=== PATIENT | female | born 1970 | race Caucasian/White ===

== ENCOUNTER 2018-09-22 11:01 | Emergency (ER) | payer OTHER ==
[~2018-09-22] VITALS: Wt 120.0 kg
[~2018-09-22 11:01] MED LIST: ACAR25TA8 PO; ACET325T33 PO; BENA5TAB33 PO; MECL25TA2 PO; NAPR-985 PO
[2018-09-22] MEDS ORDERED: ONDANSETRON (ODT) 4 MG TAB ODT STA (11:50)
[2018-09-22] MEDS ORDERED: ONDA4TAB14 PO (13:30)
[2018-09-22] MEDS ORDERED: ACET500C5 PO (13:30)
[2018-09-22 14:00] VITALS: BP 142/71; PULSE 81; RESP 18
--- NOTE | 2018-09-22 14:20 | ERD ---
ER Documentation Chief Complaint Chief Complaint VOMITED X 4 TODAY, HAS CUP OF WATER IN HER HAND HPI 48-year-old female presenting with vomiting x4 times today. She states she has some epigastric pain with some mild chest pain or shortness of breath. Denies any changes in urination or bowel movement. Denies any fevers. Medical history is diabetes. NKDA. Surgical history appendectomy and . Social history denies ROS All systems reviewed and are negative except as per history of present illness. Medications Home Meds Active Scripts Ondansetron (Ondansetron Odt) 4 Mg Tab.rapdis, 4 MG PO Q6H PRN for NAUSEA AND/OR VOMITING, #10 TAB Prov:CHAVA HUSAIN PA-C 09/22/18 Acetaminophen* (Tylophen*) 500 Mg Capsule, 2 CAP PO Q8H PRN for PAIN AND OR ELEVATED TEMP, #20 CAP Prov:CHAVA HUSAIN PA-C 09/22/18 Naproxen* (Naprosyn*) 500 Mg Tablet, 500 MG PO BID PRN for PAIN AND/OR INFLAMMATION, #30 TAB Prov:CINDY CORONADO PA-C 04/17/16 Acetaminophen* (Tylenol*) 325 Mg Tablet, 2 TAB PO Q6 PRN for PAIN AND OR ELEVATED TEMP, #20 TAB Prov:CHAVA HUSAIN PA-C 03/17/16 Meclizine Hcl* (Antivert*) 25 Mg Tablet, 25 MG PO Q6H PRN for dizziness, #20 TAB Prov:ALMA BURK MD 10/26/15 Reported Medications Benazepril Hcl* (Benazepril Hcl*) 5 Mg Tablet, 5 MG PO DAILY, TAB 03/20/14 Acarbose* (Precose*) 25 Mg Tablet, 25 MG PO TID, TAB 03/20/14 Allergies Allergies: Coded Allergies: No Known Allergy (Unverified , 03/17/16) PMhx/Soc History of Surgery: Yes (appendectomy, tonsillectomy, ) Anesthesia Reaction: No Hx Neurological Disorder: No Hx Respiratory Disorders: No Hx Cardiac Disorders: Yes (HTN, DM) Hx Psychiatric Problems: No Hx Miscellaneous Medical Probl: No Hx Alcohol Use: No Hx Substance Use: No Hx Tobacco Use: No Smoking Status: Never smoker FmHx Family History: No diabetes, No coronary disease, No other Physical Exam Vitals Vital Signs Date Temp Pulse Resp B/P (MAP) Pulse Ox O2 O2 Flow FiO2 Time Delivery Rate 09/22/18 98.3 81 18 142/71 99 Room Air 14:00 (94) 09/22/18 98.5 89 18 150/78 99 11:02 (102) Physical Exam GENERAL: The patient is well-appearing, well-nourished, in no acute distress HEENT: Atraumatic. Conjunctivae are pink. Pupils equal, round, and reactive to light. There is no scleral icterus. Tympanic membranes clear bilaterally. Oropharynx clear. NECK: C-spine is soft and supple. There is no meningismus. There is no cervical lymphadenopathy. CHEST: Clear to auscultation bilaterally. There are no rales, wheezes or rhonchi. HEART: Regular rate and rhythm. No murmurs, clicks, rubs or gallops. ABDOMEN: Normal active bowel sounds. No distention. No organomegaly. Mild tenderness palpation epigastric region. Result Diagram: 09/22/18 1212 09/22/18 1212 Results 24 hrs Laboratory Tests Test 09/22/18 12:12 White Blood Count 10.8 10^3/ul Red Blood Count 4.61 10^6/ul Hemoglobin 12.8 g/dl Hematocrit 39.8 % Mean Corpuscular Volume 86.3 fl Mean Corpuscular Hemoglobin 27.8 pg Mean Corpuscular Hemoglobin Concent 32.2 g/dl Red Cell Distribution Width 14.0 % Platelet Count 274 10^3/UL Mean Platelet Volume 9.5 fl Immature Granulocytes % 0.300 % Neutrophils % 86.8 % Lymphocytes % 8.1 % Monocytes % 3.3 % Eosinophils % 1.1 % Basophils % 0.4 % Nucleated Red Blood Cells % 0.0 /100WBC Immature Granulocytes # 0.030 10^3/ul Neutrophils # 9.4 10^3/ul Lymphocytes # 0.9 10^3/ul Monocytes # 0.4 10^3/ul Eosinophils # 0.1 10^3/ul Basophils # 0.0 10^3/ul Nucleated Red Blood Cells # 0.0 10^3/ul Urine Color YELLOW Urine Clarity CLEAR Urine pH 6.0 Urine Specific [place] 1.013 Urine Ketones NEGATIVE mg/dL Urine Nitrite NEGATIVE mg/dL Urine Bilirubin NEGATIVE mg/dL Urine Urobilinogen NEGATIVE mg/dL Urine Leukocyte Esterase NEGATIVE Cesilia/ul Urine Hemoglobin NEGATIVE mg/dL Urine Glucose NEGATIVE mg/dL Urine Total Protein NEGATIVE mg/dl Sodium Level 140 mmol/L Potassium Level 4.2 mmol/L Chloride Level 101 mmol/L Carbon Dioxide Level 26 mmol/L Anion Gap 13 Blood Urea Nitrogen 14 mg/dl Creatinine 0.51 mg/dl Est Glomerular Filtrat Rate mL/min > 60 mL/min Glucose Level 154 mg/dl Calcium Level 8.9 mg/dl Total Bilirubin 0.5 mg/dl Direct Bilirubin 0.00 mg/dl Indirect Bilirubin 0.5 mg/dl Aspartate Amino Transf (AST/SGOT) 68 IU/L Alanine Aminotransferase (ALT/SGPT) 65 IU/L Alkaline Phosphatase 136 IU/L Troponin I < 0.012 ng/ml Total Protein 8.5 g/dl Albumin 4.3 g/dl Globulin 4.20 g/dl Albumin/Globulin Ratio 1.02 Lipase 231 U/L Current Medications Medications Dose Sig/Tram Start Time Status Last (Trade) Ordered Route PRN Stop Time Admin Dose Reason Admin Ondansetron 4 mg ONCE STAT 09/22/18 DC 09/22/18 HCl (Zofran ODT 11:50 12:14 Odt) 09/22/18 11:52 Procedures/MDM EKG: Rate/Rhythm: 81 bpm. Normal Sinus Rhythm QRS, ST, T-waves: No changes consistent w/ acute ischemia Impression: No evidence of ischemia or arrhythmia FINDINGS: The liver demonstrates increased echogenicity. The liver is normal in size and no focal solid lesions are seen. The liver measures 16.6 cm in length. The portal vein is patent with normal direction of flow. No intrahepatic biliary dilatation is seen. No gallstones are identified within the gallbladder. There is no pericholecystic fluid or gallbladder wall thickening. The common bile duct measures 3 mm in maximal dimension. The pancreas is not well seen due to overlying bowel gas. No free fluid is identified. The right kidney is normal in size, and demonstrate normal echogenicity and cortical thickness. The right kidney measures 10.9 cm in long dimension. There is no evidence of hydronephrosis. There are no kidney stones. RPTAT: AA IMPRESSION: Fatty infiltration of the liver. No evidence of gallstones. MDM: 48-year-old female presenting with epigastric pain. I have low suspicion for cardiac emergency. I have low suspicion for respiratory abnormality. I have low suspicion for acute abdominal emergency. Patient's exam is non- concerning and patient blood work and imaging is within normal limits. Patient is discharged with supportive medications. Patient is seen tolerating p.o.'s in the ED. I have low suspicion for dehydration or DKA. Patient is told if symptoms change or worsen to return to ER. All questions answered at discharge Departure Diagnosis: Primary Impression: Vomiting Condition: Stable Patient Instructions: Vomiting (6Y-Adult) Referrals: VERONICA QUIGLEY MD (PCP) Additional Instructions: FOLLOW UP WITH YOUR PRIMARY CARE PHYSICIAN TOMORROW.Return to this facility if you are not improving as expected. CHAVA HUSAIN PA-C Sep 22, 2018 14:20
== END 2018-09-22 14:00 | disposition home or self-care (01) ==
LOC: FTE 11:01
DX: R11.10 Vomiting, unspecified (principal); I10 Essential (primary) hypertension; E11.9 Type 2 diabetes mellitus without complications
CPT/HCPCS: 36415; 76705; 80053; 81003; 83690; 84484; 85025; 93005; Z7502; Z7610